=== PATIENT | female | born 1995 | race Native Hawaiian/Other Pacific Islander ===

== ENCOUNTER 2021-12-21 08:42 | Inpatient (IN) | payer OTHER ==
[2021-12-21] VITALS (14 sets, daily range): BP systolic 98–187; BP diastolic 49–88
[~2021-12-21] VITALS: Ht 162.6 cm; Wt 105.9 kg
[2021-12-21] MEDS ORDERED: **PENDING PCN ENTRY XX SCH (09:00)
[2021-12-21] MEDS ORDERED: LACTATED RINGER'S 1000 ML IV STA (09:01)
[2021-12-21] MEDS ORDERED: PENICILLIN G POTASSIUM IV 5 MU in D5W MINI-BAG PLUS 100 ML IV STA (09:01)
[2021-12-21] MEDS ORDERED: LIDOCAINE 1% MDV 20ML VIAL INFIL PRN (09:05)
[2021-12-21] MEDS ORDERED: TRANEXAMIC ACID INJection 1,000 MG in NS 100 ML IV PRN (09:05)
[2021-12-21] MEDS ORDERED: CARBOPROST TROMETHAMINE 250 MCG/ML AMP IM PRN (09:05)
[2021-12-21] MEDS ORDERED: OXYTOCIN INJ 10 UNITS/ML VIAL (J2590) IV PRN (09:05)
[2021-12-21] MEDS ORDERED: METHYLERGONOVINE MALEATE 0.2 MG/ML VIAL (J2210) IM PRN (09:05)
[2021-12-21] MEDS ORDERED: LR 1,000 ML IV SCH (09:05)
[2021-12-21] MEDS ORDERED: OXYTOCIN DRIP 30 UNITS in IV 1 EA IV SCH (09:05)
[2021-12-21] MEDS ORDERED: OXYTOCIN DRIP 30 UNITS in IV 1 EA IV PRN ×6 (09:05)
[2021-12-21] MEDS ORDERED: OXYTOCIN INJ 10 UNITS/ML VIAL (J2590) IM PRN (09:05)
[2021-12-21] MEDS ORDERED: PRENTAB9 PO (09:16)
[2021-12-21] MEDS ORDERED: ECOT81TA5 PO (09:41)
[2021-12-21] MEDS ORDERED: VITA500C24 PO (09:41)
[2021-12-21] MEDS ORDERED: TUMS750C5 PO (09:41)
[2021-12-21] MEDS ORDERED: VITAD400CA PO (09:41)
[2021-12-21] MEDS ORDERED: ACET-683 PO (09:41)
[2021-12-21] MEDS ORDERED: FERR1TAB8 PO (09:41)
[2021-12-21] MEDS ORDERED: HOME MED LIST COMPLETE! XX SCH (09:55)
[2021-12-21 10:06] LABS: HEMOGLOBIN 10.9 g/dl (12.0-15.5); MEAN CORPUSCULAR HEMOGLOBIN 29.4 pg (27.0-33.0); MEAN CORPUSCULAR VOLUME 88.9 fl (80.0-96.0); PLATELET COUNT, AUTOMATED 202 10^3/uL (150-450); RED BLOOD COUNT 3.71 10^6/uL (4.00-5.40); WHITE BLOOD COUNT 8.5 10^3/uL (4.0-10.0)
[2021-12-21] MEDS: miSOPROStol 50MCG 1/2 TABLET PO PRN ×2 (10:18→14:21)
[2021-12-21] MEDS ORDERED: PENICILLIN G POTASSIUM IV 2.5 MU in IV 1 EA IV SCH (13:05)
[2021-12-21] MEDS ORDERED: PENICILLIN G POTASSIUM IV 5 MU in D5W MINI-BAG PLUS 100 ML IV ONE (23:00)
[2021-12-22] VITALS (60 sets, daily range): BP systolic 96–142; BP diastolic 50–77
[2021-12-22] MEDS ORDERED: FENTANYL 2MCG/ML ROPIVACAINE 0.2% IN 0.9% NACL 100ML IVBAG As Ordered ONE (00:14)
[2021-12-22] MEDS ORDERED: diphenhydrAMINE 50MG/ML VIAL (J1200) IV PRN (00:25)
[2021-12-22] MEDS ORDERED: EPIDURAL/PCA KEYS XX PRN (00:25)
[2021-12-22] MEDS ORDERED: ONDANSETRON 4MG 2ML VIAL IV PRN (00:25)
[2021-12-22] MEDS ORDERED: NALOXONE INJ 0.4MG/1ML VIAL (J2310 PER 1MG) IV PRN (00:25)
[2021-12-22] MEDS ORDERED: LR 500 ML IV PRN (00:25)
[2021-12-22] MEDS ORDERED: ePHEDrine SULFATE 25 MG/5 ML(5MG/ML) SYRINGE IVP PRN (00:25)
[2021-12-22] MEDS: FENTANYL/ROPIVACAINE/NACL BAG 100 ML EPIDURAL SCH ×3 (01:05→17:43)
[2021-12-22] MEDS: PENICILLIN G POTASSIUM IV 2.5 MU in IV 1 EA IV SCH ×5 (02:53→18:47)
[2021-12-22] MEDS: miSOPROStol 50MCG 1/2 TABLET PO PRN (02:54)
[2021-12-22] MEDS: LR 1,000 ML IV SCH ×2 (04:59→13:05)
[2021-12-22 19:53] LABS: CORD GAS ABE A -11.6; CORD GAS HCO3 A 16.9 MEQ/L; CORD GAS O2 SAT A 98.2 %; CORD GAS PCO2 A 48.3 mmHg; CORD GAS PH A 7.162 UNITS; CORD GAS PO2 A 100.6 mmHg; CORD GAS SBC A 15.5 MEQ/L; CORD GAS TCO2 A 18.4 MEQ/L
[2021-12-22 19:55] LABS: CORD GAS ABE V -10.5; CORD GAS HCO3 V 18.4 MEQ/L; CORD GAS O2 SAT V 99.1 %; CORD GAS PCO2 V 52.8 mmHg; CORD GAS PH V 7.159 UNITS; CORD GAS PO2 V 101.6 mmHg; CORD GAS SBC V 16.3 MEQ/L
[2021-12-22] MEDS ORDERED: DIBUCAINE 1% OINTMENT 30GM TOP PRN (20:20)
[2021-12-22] MEDS ORDERED: ANUSOL HC CREAM 30GM TOP PRN (20:20)
[2021-12-22] MEDS ORDERED: MOM 30ML SUSPENSION UDC PO PRN (20:20)
[2021-12-22] MEDS ORDERED: ACETAMINOPHEN 500 MG TAB PO PRN (20:20)
[2021-12-22] MEDS ORDERED: IBUPROFEN 800 MG TAB PO PRN (20:20)
[2021-12-23 06:00] VITALS: BP 100/47
[2021-12-23] MEDS: PRENATAL VITAMINS CHEWABLE TABLET PO SCH (08:23)
[2021-12-23] MEDS: DOCUSATE SODIUM 100MG CAPSULE PO SCH ×4 (08:23→22:25)
[2021-12-23] MEDS: ASCORBIC ACID 500 MG TAB PO SCH (08:27)
[2021-12-23 17:59] VITALS: BP 106/57
[2021-12-24 06:00] VITALS: BP 112/58
[2021-12-24] MEDS ORDERED: IBUP80TA PO (06:48)
[2021-12-24] MEDS ORDERED: COLA100C5 PO (06:48)
[2021-12-24] MEDS ORDERED: ACET-683 PO (06:48)
[2021-12-24] MEDS: ASCORBIC ACID 500 MG TAB PO SCH (07:45)
[2021-12-24] MEDS: PRENATAL VITAMINS CHEWABLE TABLET PO SCH (07:46)
[2021-12-24] MEDS: DOCUSATE SODIUM 100MG CAPSULE PO SCH (07:46)
[2021-12-24] MEDS ORDERED: MEASLES,MUMPS,RUBELLA VACCINE INJ (MMR-II) (90707) SC.IMMUN ONE (09:00)
== END 2021-12-24 12:00 | disposition home or self-care (01) | DRG 807 ==
LOC: M LDI 08:42 → M OBS 12-22 22:11
PROVIDERS: ADMIT Obstetrics & Gynecology; ATTEND Obstetrics & Gynecology
PROC: 3E033VJ Introduction of Other Hormone into Peripheral Vein, Percutaneous Approach (ICD-10-PCS; 2021-12-21)
PROC: 10E0XZZ Delivery of Products of Conception, External Approach (ICD-10-PCS; principal; 2021-12-22)
PROC: 0KQM0ZZ Repair Perineum Muscle, Open Approach (ICD-10-PCS; 2021-12-22)
PROC: 0UQMXZZ Repair Vulva, External Approach (ICD-10-PCS; 2021-12-22)
DX: O48.0 Post-term pregnancy (principal); Z37.0 Single live birth; Z3A.41 41 weeks gestation of pregnancy; O99.824 Streptococcus B carrier state complicating childbirth; O99.210 Obesity complicating pregnancy, unspecified trimester; O69.81X0 Labor and delivery complicated by cord around neck, without compression, not applicable or unspecified; O70.1 Second degree perineal laceration during delivery; O71.82 Other specified trauma to perineum and vulva

== ENCOUNTER 2022-01-25 14:02 | Emergency (ER) | payer OTHER ==
[~2022-01-25] VITALS: Ht 162.6 cm; Wt 93.9 kg
[~2022-01-25 14:02] MED LIST: ACET-683 PO; COLA100C5 PO; ECOT81TA5 PO; FERR1TAB8 PO; IBUP80TA PO; PRENTAB9 PO; TUMS750C5 PO; VITA500C24 PO; VITAD400CA PO
[2022-01-25 14:49] VITALS: BP 113/80
== END 2022-01-25 14:50 | disposition home or self-care (01) ==
LOC: M ED 14:02
DX: N89.8 Other specified noninflammatory disorders of vagina (principal); J45.909 Unspecified asthma, uncomplicated; E66.9 Obesity, unspecified; Z79.899 Other long term (current) drug therapy

== ENCOUNTER → 2023-07-08 | Outpatient (CLI) | payer OTHER | LOC: M RAD 11:37 | PROVIDERS: ATTEND Family Medicine | DX: O32.1XX0 Maternal care for breech presentation, not applicable or unspecified (principal); Z3A.37 37 weeks gestation of pregnancy ==

== ENCOUNTER 2023-07-10 11:14 | Outpatient (CLI) | payer OTHER ==
[~2023-07-10] VITALS: Ht 162.6 cm; Wt 101.1 kg
[2023-07-10 11:36] VITALS: BP 122/58
[2023-07-10] MEDS ORDERED: HOME MED LIST COMPLETE! XX SCH (11:40)
[2023-07-10] MEDS ORDERED: LR 1,000 ML IV ONE (12:00)
[2023-07-10] MEDS ORDERED: TERBUTALINE SULFATE 1 MG/ML 1ML VIAL SC ONE (12:30)
== END 2023-07-10 12:30 | disposition home or self-care (01) ==
LOC: M LDO 11:14
PROVIDERS: ATTEND Advanced Practice Midwife
DX: O32.0XX0 Maternal care for unstable lie, not applicable or unspecified (principal); Z3A.37 37 weeks gestation of pregnancy
CPT/HCPCS: 59025; 76815; 96372; G0463

== ENCOUNTER 2023-07-25 11:05 | Inpatient (IN) | payer OTHER ==
[~2023-07-25] VITALS: Ht 162.6 cm; Wt 102.5 kg
[2023-07-25] VITALS (13 sets, daily range): BP systolic 87–130; BP diastolic 49–69
[2023-07-25] MEDS ORDERED: TRANEXAMIC ACID INJection 1,000 MG in NS 100 ML IV PRN (12:10)
[2023-07-25] MEDS ORDERED: CARBOPROST TROMETHAMINE 250 MCG/ML AMP IM PRN (12:10)
[2023-07-25] MEDS ORDERED: LIDOCAINE 1% MDV 20ML VIAL INFIL PRN (12:10)
[2023-07-25] MEDS ORDERED: METHYLERGONOVINE MALEATE 0.2MG/ML 1ML VIAL IM PRN (12:10)
[2023-07-25] MEDS ORDERED: OXYTOCIN DRIP 30 UNITS in IV 1 EA IV PRN (12:10)
[2023-07-25 12:39] LABS: HEMATOCRIT 36.8 % (36.0-47.0); HEMOGLOBIN 11.9 g/dl (12.0-15.5); MEAN CORPUSCULAR HGB CONC 32.3 g/dl (32.0-36.5); MEAN CORPUSCULAR VOLUME 86.6 fl (80.0-96.0); PLATELET COUNT, AUTOMATED 255 10^3/uL (150-450); RED BLOOD COUNT 4.25 10^6/uL (4.00-5.40); WHITE BLOOD COUNT 9.5 10^3/uL (4.0-10.0)
[2023-07-25] MEDS: miSOPROStol 50MCG 1/2 TABLET PO ONE ×2 (13:08→17:26)
[2023-07-25] MEDS ORDERED: HOME MED LIST COMPLETE! XX SCH (15:25)
[2023-07-25] MEDS: PENICILLIN G POTASSIUM 5 MU IV 5 MU in D5W MINI-BAG PLUS 100 ML IV STA (17:26)
[2023-07-25] MEDS: LR 1,000 ML IV SCH (21:33)
[2023-07-25] MEDS: OXYTOCIN DRIP 30 UNITS in IV 1 EA IV SCH (21:33)
[2023-07-25] MEDS: PEN G POT 3,000,000 UNIT/50 ML 3,000,000 UNIT in IV 1 EA IV SCH (21:33)
[2023-07-26] VITALS (29 sets, daily range): BP systolic 89–125; BP diastolic 50–81; O2SAT 90–100
[2023-07-26] MEDS ORDERED: EPIDURAL/PCA KEYS XX PRN (02:25)
[2023-07-26] MEDS ORDERED: ePHEDrine SULFATE 25 MG/5 ML(5MG/ML) SYRINGE IVP PRN (02:25)
[2023-07-26] MEDS ORDERED: LR 500 ML IV PRN (02:25)
[2023-07-26] MEDS ORDERED: diphenhydrAMINE 50MG/ML VIAL IV PRN (02:25)
[2023-07-26] MEDS ORDERED: NALOXONE INJ 0.4MG/1ML VIAL IV PRN (02:25)
[2023-07-26] MEDS: FENTANYL/ROPIVACAINE/NACL BAG 100 ML EPIDURAL SCH (03:05)
[2023-07-26] MEDS: ONDANSETRON 4MG 2ML VIAL IV PRN (06:16)
[2023-07-26] MEDS ORDERED: DIBUCAINE 1% OINTMENT 30GM TOP PRN (07:05)
[2023-07-26] MEDS ORDERED: ONDANSETRON 4MG 2ML VIAL IV PRN (07:05)
[2023-07-26] MEDS ORDERED: ACETAMINOPHEN TAB 650MG DOSE (2X325MG) PO PRN (07:05)
[2023-07-26] MEDS ORDERED: METHYLERGONOVINE MALEATE 0.2MG/ML 1ML VIAL IM PRN (07:05)
[2023-07-26] MEDS ORDERED: METOCLOPRAMIDE INJ 10MG/2ML VIAL IV PRN (07:05)
[2023-07-26] MEDS ORDERED: DOCUSATE SODIUM 100MG CAPSULE PO PRN (07:05)
[2023-07-26] MEDS ORDERED: ACETAMINOPHEN 500 MG TAB PO PRN (07:05)
[2023-07-26] MEDS ORDERED: RHOGAM 300MCG (1500IU) INJ IM SCH (07:05)
[2023-07-26] MEDS: LR 1,000 ML IV SCH (07:25)
[2023-07-26] MEDS: OXYTOCIN DRIP 30 UNITS in IV 1 EA IV SCH (07:25)
[2023-07-26] MEDS ORDERED: PRENATAL VITAMINS CHEWABLE TABLET PO SCH (09:00)
[2023-07-26] MEDS: PRENATAL VITAMINS CHEWABLE TABLET PO SCH (09:45)
[2023-07-26] MEDS: IBUPROFEN 600MG TAB PO PRN (16:53)
[2023-07-27 05:41] VITALS: BP 123/67
[2023-07-27] MEDS: IBUPROFEN 800 MG TAB PO PRN (07:18)
[2023-07-27] MEDS ORDERED: ACET1TAB55 PO (07:54)
[2023-07-27] MEDS ORDERED: IBUP-1022 PO (07:54)
[2023-07-27] MEDS ORDERED: COLA100C5 PO (07:54)
[2023-07-28] MEDS ORDERED: MEASLES,MUMPS,RUBELLA VACCINE INJ (MMR-II) SC.IMMUN ONE (09:00)
== END 2023-07-27 13:40 | disposition home or self-care (01) | DRG 807 ==
LOC: M LDI 11:05 → M OBS 07-26 09:24
PROVIDERS: ADMIT Obstetrics & Gynecology; ATTEND Obstetrics & Gynecology
PROC: 3E0P7GC Introduction of Other Therapeutic Substance into Female Reproductive, Via Natural or Artificial Opening (ICD-10-PCS; 2023-07-25)
PROC: 10E0XZZ Delivery of Products of Conception, External Approach (ICD-10-PCS; principal; 2023-07-26)
PROC: 10907ZC Drainage of Amniotic Fluid, Therapeutic from Products of Conception, Via Natural or Artificial Opening (ICD-10-PCS; 2023-07-26)
PROC: 0HQ9XZZ Repair Perineum Skin, External Approach (ICD-10-PCS; 2023-07-26)
DX: O32.0XX0 Maternal care for unstable lie, not applicable or unspecified (principal); Z37.0 Single live birth; Z3A.39 39 weeks gestation of pregnancy; O99.824 Streptococcus B carrier state complicating childbirth; O70.0 First degree perineal laceration during delivery